=== PATIENT | male | born 1995 | race Caucasian/White ===

== ENCOUNTER 2017-07-16 10:24 | Emergency (ER) | payer MEDICAID ==
[~2017-07-16] VITALS: Ht 195.6 cm; Wt 86.0 kg
[~2017-07-16 10:24] MED LIST: IBUP-1986 PO
[2017-07-16 10:30] VITALS: BP 139/70
[2017-07-16] MEDS ORDERED: NAPR-56 PO (11:54)
[2017-07-16] MEDS ORDERED: naproxen 500mg tablet PO ONE (11:55)
== END 2017-07-16 12:45 | disposition home or self-care (01) ==
LOC: ER 10:24
DX: M25.511 Pain in right shoulder (principal); F17.200 Nicotine dependence, unspecified, uncomplicated
CPT/HCPCS: 73030; 99284

== ENCOUNTER 2017-11-22 14:27 | Emergency (ER) | payer MEDICAID ==
[~2017-11-22] VITALS: Ht 195.6 cm; Wt 86.4 kg
[2017-11-22] MEDS ORDERED: ketorolac trometh inj. 60 MG/2 ML VIAL IM ONE (15:00)
[2017-11-22] MEDS ORDERED: CLIN150C8 PO (15:05)
[2017-11-22] MEDS ORDERED: IBUP-1984 PO (15:05)
[2017-11-22 15:16] VITALS: BP 127/78
== END 2017-11-22 15:18 | disposition home or self-care (01) ==
LOC: ER 14:28
DX: K08.89 Other specified disorders of teeth and supporting structures (principal); F17.200 Nicotine dependence, unspecified, uncomplicated
CPT/HCPCS: 96372; 99283; J1885